=== PATIENT | male | born 1995 | race African-American/Black ===

== ENCOUNTER 2019-04-13 11:46 | Emergency (ER) | payer OTHER ==
[~2019-04-13] VITALS: Ht 167.6 cm; Wt 70.3 kg
[2019-04-13] MEDS ORDERED: VALIUM5 MG PO (12:54)
[2019-04-13] MEDS ORDERED: MOBIC15 MG PO (12:54)
[2019-04-13 14:55] VITALS: BP 113/43
== END 2019-04-13 13:00 | disposition home or self-care (01) ==
LOC: ER 11:46
DX: M54.2 Cervicalgia (principal); M43.6 Torticollis; M54.5 Low back pain; V49.59XA Passenger injured in collision with other motor vehicles in traffic accident, initial encounter; Y93.89 Activity, other specified; Y92.413 State road as the place of occurrence of the external cause; Y99.9 Unspecified external cause status